=== PATIENT | male | born 1965 | race Caucasian/White ===

== ENCOUNTER 2023-10-15 17:03 | Emergency (ER) | payer OTHER ==
[2023-10-15] MEDS ORDERED: ONDANSETRON 4 MG/2 ML VIAL IVPUSH ONE (17:23)
[2023-10-15] MEDS ORDERED: ONDANSETRON 4 MG/2 ML VIAL ONE (17:24)
[2023-10-15] MEDS ORDERED: SODIUM CHLORIDE 0.9% 500 ML INFUS.BAG IV ONE (17:28)
[2023-10-15 17:32] VITALS: TEMP 99.1; BMI 26.6
[2023-10-15] MEDS ORDERED: ACETAMINOPHEN 1000 MG/100 ML BAG IVPB ONE (17:48)
[2023-10-15] MEDS ORDERED: ACETAMINOPHEN INJECTION 100 ML IVPB ONE (17:50)
[2023-10-15 17:56] LABS: HEMATOCRIT 45.5 % (35.4-49); HEMOGLOBIN 15.8 G/dL (11.7-16.9); MCH 34.9 pg (25.7-33.7); MCHC 34.6 g/dl (32.0-35.9); MEAN CELL VOLUME 100.8 fl (80-96); MEAN PLT VOLUME 8.3 fl (7.5-11.1); PLATELET COUNT 211.8 10^3/uL (134-434); RBC 4.51 10^6/uL (4.00-5.60); RDW 12.9 % (11.9-15.9); WHITE BLOOD COUNT 6.4 10^3/uL (4.0-10.8)
[2023-10-15 18:26] LABS: PLATELET ESTIMATE ADEQUATE
[2023-10-15 18:37] LABS: POTASSIUM 3.9 mmol/L (3.5-5.1)
[2023-10-15 18:39] LABS: CALCIUM 9.3 mg/dL (8.5-10.1)
[2023-10-15] MEDS ORDERED: chlordiazePOXIDE HCL 25 MG CAPSULE PO ONE (18:39)
[2023-10-15] MEDS ORDERED: FAMOTIDINE 20 MG/50 ML IVPB 20 MG in PREMIX 50 IVPB ONE (18:39)
[2023-10-15 18:40] LABS: ALBUMIN 3.4 g/dl (3.4-5.0); MAGNESIUM 1.9 mg/dL (1.8-2.4)
[2023-10-15 18:43] LABS: CREATININE 0.9 mg/dL (0.55-1.3)
[2023-10-15 18:44] LABS: BILIRUBIN,TOTAL 0.4 mg/dL (0.2-1); TOT PROT 7.8 g/dl (6.4-8.2)
[2023-10-15] MEDS ORDERED: FAMOTIDINE 20 MG/50 ML IVPB 20 MG/50 ML MG IVPB ONE (18:47)
[2023-10-15] MEDS ORDERED: chlordiazePOXIDE HCL 25 MG CAPSULE ONE (18:47)
[2023-10-15] MEDS ORDERED: SODIUM CHLORIDE 1,000 ML IV ONE (18:53)
[2023-10-15 19:04] VITALS: BP 136/93; PULSE 98; RESP 16
== END 2023-10-15 19:13 | disposition home or self-care (01) ==
LOC: EDBD → MERGE 17:03 → FER 17:03
PROC: 3E033GC Introduction of Other Therapeutic Substance into Peripheral Vein, Percutaneous Approach (ICD-10-PCS; principal; 2023-10-15)
PROC: 3E033GC Introduction of Other Therapeutic Substance into Peripheral Vein, Percutaneous Approach (ICD-10-PCS; 2023-10-15)
PROC: 3E033GC Introduction of Other Therapeutic Substance into Peripheral Vein, Percutaneous Approach (ICD-10-PCS; 2023-10-15)
DX: F10.920 Alcohol use, unspecified with intoxication, uncomplicated (principal); R11.2 Nausea with vomiting, unspecified; R51.9 Headache, unspecified
CPT/HCPCS: 36415; 80053; 83690; 83735; 85027; 99284-25

== ENCOUNTER 2024-01-06 14:05 | Inpatient (IN) | payer OTHER ==
[2024-01-06 15:31] VITALS: BMI 28.7
[2024-01-06] MEDS ORDERED: ONDANSETRON *ODT* 4 MG TABLET ONE (16:06)
[2024-01-06] MEDS: ONDANSETRON *ODT* 4 MG TABLET SL ONE (16:19)
[2024-01-06] MEDS ORDERED: BISMUTH SUBSALICYLATE 524 MG/30 ML PO PRN (16:39)
[2024-01-06] MEDS ORDERED: MAG HYDROX/AL HYDROX/SIMETH 30 ML UNIT-DOSE CUP PO PRN (16:39)
[2024-01-06] MEDS ORDERED: LOPERAMIDE HCL 2 MG CAPSULE PO PRN (16:39)
[2024-01-06] MEDS ORDERED: ACETAMINOPHEN 325 MG TABLET (FP) PO PRN (16:39)
[2024-01-06] MEDS ORDERED: DICYCLOMINE HCL 10 MG CAPSULE PO PRN (16:39)
[2024-01-06] MEDS ORDERED: BENZONATATE 200 MG CAPSULE PO PRN (16:39)
[2024-01-06] MEDS ORDERED: POLYETHYLENE GLYCOL (HEALTHYLAX) 3350 17 GM PACKET PO PRN (16:39)
[2024-01-06] MEDS ORDERED: IBUPROFEN 400 MG TABLET (FP) PO PRN (16:39)
[2024-01-06] MEDS ORDERED: MAGNESIUM HYDROX 2400MG/30ML ORAL SUSPENSION 30 ML CUP PO PRN (16:39)
[2024-01-06] MEDS ORDERED: BENZOCAINE/MENTHOL (CHLORASEPTIC ) LOZENGE MM PRN (16:39)
[2024-01-06] MEDS ORDERED: IBUPROFEN 600 MG TABLET (FP) PO PRN (16:39)
[2024-01-06] MEDS ORDERED: ONDANSETRON *ODT* 4 MG TABLET SL PRN (16:39)
[2024-01-06] MEDS ORDERED: NALOXONE HCL 0.4 MG/ML VIAL IM PRN (16:39)
[2024-01-06] MEDS ORDERED: NALOXONE HCL (KLOXXADO) 8 MG SPRAY NS PRN (16:39)
[2024-01-06] MEDS ORDERED: guaiFENesin 600 MG TABLET.ER (FP) PO PRN (16:39)
[2024-01-06] MEDS ORDERED: LORazepam 2 MG TABLET ONE (19:03)
[2024-01-06] MEDS: LORazepam 2 MG TABLET PO SCH (19:07)
[2024-01-06] MEDS: THIAMINE 100 MG TABLET PO SCH (22:54)
[2024-01-06] MEDS: MELATONIN 5 MG TABLETS PO SCH (22:54)
[2024-01-06] MEDS: METHOCARBAMOL 500 MG TABLET PO PRN (22:55)
[2024-01-06] MEDS: PRENATAL VITAMINS W/ FOLIC ACID TABLET (FP) PO SCH (22:55)
[2024-01-07] MEDS: levETIRAcetam 500 MG TABLET (FP) PO SCH (10:29)
[2024-01-07] MEDS: NICOTINE 14 MG/24 HOURS TOPICAL PATCH TD SCH (10:30)
[2024-01-07 11:47] LABS: HEMATOCRIT 42.8 % (35.4-49); HEMOGLOBIN 14.1 GM/dL (11.7-16.9); MCH 32.9 pg (25.7-33.7); MCHC 33.1 g/dl (32.0-35.9); MEAN CELL VOLUME 99.7 fl (80-96); MEAN PLT VOLUME 8.3 fl (7.5-11.1); PLATELET COUNT 219 10^3/uL (134-434); RBC 4.29 M/mm3 (4.00-5.60); RDW 14.1 % (11.9-15.9); WHITE BLOOD COUNT 6.1 K/mm3 (4.0-10.0)
[2024-01-07 11:52] LABS: CHLORIDE 104 mmol/L (98-107); POTASSIUM 4.4 mmol/L (3.5-5.1); SODIUM 137 mmol/L (136-145)
[2024-01-07 12:00] LABS: CALCIUM 8.8 mg/dL (8.5-10.1); GLUCOSE,RANDOM 128 mg/dL (74-106)
[2024-01-07 12:01] LABS: ALBUMIN 2.7 g/dl (3.4-5.0); ANION GAP 4 mmol/L (4-13); BLOOD UREA NITROGEN 9.4 mg/dL (7-18); CO2 29 mmol/L (21-32)
[2024-01-07 12:03] LABS: SGPT/ALT 47 U/L (13-61)
[2024-01-07 12:04] LABS: CREATININE 0.9 mg/dL (0.55-1.3); SGOT/AST 62 U/L (15-37)
[2024-01-07 12:05] LABS: BILIRUBIN,TOTAL 0.8 mg/dL (0.2-1); TOT PROT 6.8 g/dl (6.4-8.2)
[2024-01-07 12:06] LABS: ALK PHOS 67 U/L (45-117)
[2024-01-08] MEDS: LORazepam 1 MG TABLET PO SCH (05:52)
[2024-01-08] MEDS: hydrOXYzine PAMOATE 25 MG CAPSULE (FP) PO PRN (05:57)
[2024-01-08] MEDS: LORazepam 1 MG TABLET PO PRN (22:33)
[2024-01-09] MEDS ORDERED: LORazepam 0.5 MG TABLET PO PRN
[2024-01-09] MEDS: LORazepam 0.5 MG TABLET PO SCH (05:55)
[2024-01-09] MEDS: amLODIPine BESYLATE 2.5 MG TABLET (FP) PO SCH (10:37)
[2024-01-09] MEDS: LACTULOSE 20 GM/30 ML UDC (FOR ORAL USE ONLY) PO SCH (13:56)
[2024-01-10] MEDS: LORazepam 0.5 MG TABLET PO ONE (05:44)
[2024-01-10 06:34] VITALS: RESP 16
[2024-01-10 09:46] VITALS: BP 159/131; PULSE 102; TEMP 97.3
[2024-01-10] MEDS: amLODIPine BESYLATE 5 MG TABLET (FP) PO SCH (10:30)
== END 2024-01-10 11:30 | disposition home or self-care (01) | DRG 775 ==
LOC: YASAS 14:05 → Y6N 18:41
PROVIDERS: ADMIT Allergy & Immunology; ATTEND Surgery
PROC: HZ2ZZZZ Detoxification Services for Substance Abuse Treatment (ICD-10-PCS; principal; 2024-01-06)
DX: F10.230 Alcohol dependence with withdrawal, uncomplicated (principal); F17.210 Nicotine dependence, cigarettes, uncomplicated; E72.20 Disorder of urea cycle metabolism, unspecified; I10 Essential (primary) hypertension; R56.9 Unspecified convulsions; R73.9 Hyperglycemia, unspecified
CPT/HCPCS: 36415; 80053; 80307; 82140; 85027; 86780; 93005; 93010; Q0162

== ENCOUNTER 2024-03-07 13:21 | Inpatient (IN) | payer OTHER ==
[2024-03-07 13:38] VITALS: BMI 28.7
[2024-03-07] MEDS ORDERED: ONDANSETRON 4 MG/2 ML VIAL ONE (14:54)
[2024-03-07] MEDS ORDERED: ACETAMINOPHEN INJECTION 100 ML IVPB ONE (14:54)
[2024-03-07] MEDS: SODIUM CHLORIDE 0.9% 1000 ML INFUS.BAG IV STA (15:05)
[2024-03-07] MEDS: ACETAMINOPHEN 1000 MG/100 ML BAG IVPB ONE (15:05)
[2024-03-07] MEDS: ONDANSETRON 4 MG/2 ML VIAL IVPUSH ONE (15:06)
[2024-03-07 15:11] LABS: BASO % 1.4 % (0-2.0); EOS % 5.9 % (0-4.5); HEMATOCRIT 47.6 % (35.4-49); HEMOGLOBIN 16.1 GM/dL (11.7-16.9); LYMPH % 20.7 % (8-40); MCH 33.6 pg (25.7-33.7); MCHC 33.8 g/dl (32.0-35.9); MEAN CELL VOLUME 99.2 fl (80-96); MEAN PLT VOLUME 8.4 fl (7.5-11.1); MONO % 14.5 % (3.8-10.2); NEUT % 57.5 % (42.8-82.8); PLATELET COUNT 269 10^3/uL (134-434); RDW 14.2 % (11.9-15.9); WHITE BLOOD COUNT 7.4 K/mm3 (4.0-10.0)
[2024-03-07 15:18] LABS: INR 0.92 (0.83-1.09); PROTHROMBIN TIME (PATIENT) 10.6 SEC (9.7-13.0)
[2024-03-07 15:23] LABS: VENOUS BASE EXCESS -0.9 mmol/L (-2-2); VENOUS O2 SATURATION 91.5 % (70-80); VENOUS PCO2 37.4 mmHg (38-52); VENOUS PH 7.412 (7.310-7.410)
[2024-03-07 15:31] LABS: POTASSIUM 3.8 mmol/L (3.5-5.1)
[2024-03-07 15:33] LABS: CALCIUM 9.2 mg/dL (8.5-10.1)
[2024-03-07 15:34] LABS: ALBUMIN 3.4 g/dl (3.4-5.0); BLOOD UREA NITROGEN 14.6 mg/dL (7-18)
[2024-03-07 15:36] LABS: CREATININE 1.2 mg/dL (0.55-1.3)
[2024-03-07] MEDS ORDERED: diazePAM CARPU-JECT 10 MG/2 ML DISP.SYRIN ONE (19:16)
[2024-03-07] MEDS: diazePAM CARPU-JECT 10 MG/2 ML DISP.SYRIN IVPUSH ONE (19:23)
[2024-03-07] MEDS ORDERED: MORPHINE SULFATE 2 MG/ML SYRINGE IVPUSH PRN (20:03)
[2024-03-07] MEDS ORDERED: ACETAMINOPHEN 1000 MG/100 ML BAG IVPB PRN (20:07)
[2024-03-07] MEDS ORDERED: THIAMINE HCL 200 MG/2 ML VIAL ONE (22:35)
[2024-03-07] MEDS ORDERED: NICOTINE 21 MG/24 HOURS TOPICAL PATCH ONE (22:35)
[2024-03-07] MEDS: THIAMINE HCL 200 MG/2 ML VIAL IVPB ONE (22:55)
[2024-03-07] MEDS: FOLIC ACID INJECTION - 1 MG, THIAMINE HCL 100 MG, MULTIVIT INJECTION ADULT 10 ML in SOD... IVPB ONE (22:55)
[2024-03-07] MEDS: NICOTINE 21 MG/24 HOURS TOPICAL PATCH TD SCH (22:55)
[2024-03-08] MEDS ORDERED: diazePAM 5 MG TABLET PO PRN (08:22)
[2024-03-08 08:55] LABS: BASO % 1.4 % (0-2.0); EOS % 6.2 % (0-4.5); HEMATOCRIT 43.1 % (35.4-49); HEMOGLOBIN 14.6 GM/dL (11.7-16.9); LYMPH % 15.9 % (8-40); MCH 33.9 pg (25.7-33.7); MCHC 33.8 g/dl (32.0-35.9); MEAN CELL VOLUME 100.5 fl (80-96); MEAN PLT VOLUME 8.2 fl (7.5-11.1); MONO % 12.2 % (3.8-10.2); NEUT % 64.3 % (42.8-82.8); PLATELET COUNT 211 10^3/uL (134-434); RBC 4.29 M/mm3 (4.00-5.60); WHITE BLOOD COUNT 6.7 K/mm3 (4.0-10.0)
[2024-03-08 09:08] LABS: POTASSIUM 3.6 mmol/L (3.5-5.1)
[2024-03-08 09:09] LABS: CALCIUM 8.5 mg/dL (8.5-10.1)
[2024-03-08 09:10] LABS: BLOOD UREA NITROGEN 10.2 mg/dL (7-18); MAGNESIUM 1.8 mg/dL (1.8-2.4)
[2024-03-08 09:13] LABS: CREATININE 0.8 mg/dL (0.55-1.3)
[2024-03-08 09:14] LABS: TOT PROT 7.1 g/dl (6.4-8.2)
[2024-03-08 09:15] LABS: BILIRUBIN,TOTAL 1.2 mg/dL (0.2-1)
[2024-03-08] MEDS: THIAMINE 100 MG TABLET PO SCH (09:39)
[2024-03-08] MEDS: ENOXAPARIN NA (PORCINE) 40 MG/0.4 ML DISP.SYRIN SQ SCH (09:39)
[2024-03-08] MEDS: FOLIC ACID 1 MG TABLET (FP) PO SCH (09:39)
[2024-03-08] MEDS: LORazepam 1 MG TABLET PO PRN (11:20)
[2024-03-08] MEDS: DEXTROSE 5%-LACTATED RINGERS 1,000 ML IV SCH (12:51)
[2024-03-08] MEDS: amLODIPine BESYLATE 5 MG TABLET (FP) PO SCH (14:37)
[2024-03-08] MEDS: LORazepam 1 MG TABLET PO SCH (16:57)
[2024-03-08] MEDS ORDERED: diazePAM 5 MG TABLET PO SCH (17:00)
[2024-03-08 17:56] LABS: URINE APPEARANCE Clear; URINE BILIRUBIN Negative (NEGATIVE); URINE COLOR Yellow; URINE GLUCOSE (UA) Negative (NEGATIVE); URINE KETONE 1+ (NEGATIVE); URINE LEUK ESTERASE 1+ (NEGATIVE); URINE NITRITE Negative (NEGATIVE); URINE PROTEIN Negative (NEGATIVE)
[2024-03-08 18:19] LABS: EPI CELLS 25.2 /uL (0-25.1); HYALINE CASTS 2.33 /uL (0-3.1); URINE BACTERIA 85.4 /uL (0-1359); URINE RBC 6.2 /uL (0-23.9); URINE WBC 14.7 /uL (0-25.8)
[2024-03-08] MEDS: PANTOPRAZOLE 40 MG TABLET PO ONE (21:28)
[2024-03-09 08:11] LABS: CARCINOEMBRYONIC ANTIGEN 5.1 ng/mL (0.0-4.7)
[2024-03-09] MEDS: PANTOPRAZOLE 40 MG TABLET PO SCH (09:43)
[2024-03-09] MEDS: amLODIPine BESYLATE 5 MG TABLET (FP) PO ONE (12:08)
[2024-03-09 12:57] LABS: HEMATOCRIT 46.8 % (35.4-49); HEMOGLOBIN 16.1 GM/dL (11.7-16.9); MCH 33.8 pg (25.7-33.7); MCHC 34.5 g/dl (32.0-35.9); MEAN CELL VOLUME 98.1 fl (80-96); MEAN PLT VOLUME 8.5 fl (7.5-11.1); PLATELET COUNT 218 10^3/uL (134-434); RBC 4.77 M/mm3 (4.00-5.60); RDW 13.8 % (11.9-15.9); WHITE BLOOD COUNT 7.6 K/mm3 (4.0-10.0)
[2024-03-09 13:16] LABS: POTASSIUM 3.4 mmol/L (3.5-5.1)
[2024-03-09 13:18] LABS: ALBUMIN 3.1 g/dl (3.4-5.0); CALCIUM 9.1 mg/dL (8.5-10.1)
[2024-03-09 13:22] LABS: CREATININE 0.8 mg/dL (0.55-1.3)
[2024-03-09 13:23] LABS: BILIRUBIN,TOTAL 1.9 mg/dL (0.2-1); TOT PROT 7.6 g/dl (6.4-8.2)
[2024-03-09] MEDS: POTASSIUM CHLORIDE ORAL LIQUID 20 MEQ/15 ML PO ONE (14:35)
[2024-03-09 18:19] VITALS: RESP 18
[2024-03-09 23:43] VITALS: BP 140/95; PULSE 102; TEMP 97.5
[2024-03-10] MEDS ORDERED: LORazepam 1 MG TABLET PO SCH (05:00)
[2024-03-10] MEDS ORDERED: diazePAM 5 MG TABLET PO SCH (06:00)
[2024-03-10] MEDS ORDERED: amLODIPine BESYLATE 10 MG TABLET (FP) PO SCH (10:00)
[2024-03-11] MEDS ORDERED: LORazepam 0.5 MG TABLET PO PRN
[2024-03-11] MEDS ORDERED: LORazepam 0.5 MG TABLET PO SCH (05:00)
[2024-03-11] MEDS ORDERED: diazePAM 5 MG TABLET PO SCH (06:00)
[2024-03-12] MEDS ORDERED: LORazepam 0.5 MG TABLET PO ONE (05:00)
[2024-03-12] MEDS ORDERED: diazePAM 5 MG TABLET PO ONE (06:00)
== END 2024-03-10 01:04 | disposition short-term general hospital (02) | DRG 424 ==
LOC: JER 13:21 → JERBED 03-08 02:02 → J5S 03-08 03:24
PROVIDERS: ADMIT Internal Medicine
DX: E07.89 Other specified disorders of thyroid (principal); I82.C12 Acute embolism and thrombosis of left internal jugular vein; F10.239 Alcohol dependence with withdrawal, unspecified; R11.2 Nausea with vomiting, unspecified; R22.1 Localized swelling, mass and lump, neck; I10 Essential (primary) hypertension; F17.210 Nicotine dependence, cigarettes, uncomplicated; R91.8 Other nonspecific abnormal finding of lung field; J38.01 Paralysis of vocal cords and larynx, unilateral; R63.4 Abnormal weight loss; Z68.28 Body mass index [BMI] 28.0-28.9, adult
CPT/HCPCS: 0241U-QW; 36415; 70491-TC; 71045-TC-FY; 71260-TC; 74177-TC; 74230-TC-FY; 80053; 81003; 82308; 82378; 82803; 83036; 83605; 83615; 83690; 83735; 84100; 84153; 84439; 84443; 84481; 84484; 85025; 85027; 85610; 87040; 87635; 92611-GN; 93005; 93010; 99285-25; J0131; Q9967